=== PATIENT | female | born 1940 | race Caucasian/White ===

== ENCOUNTER 2024-02-15 13:07 | Inpatient (IN) | payer OTHER, MEDICARE ==
[2024-02-15 14:38] LABS: VENOUS BASE EXCESS 4.4 mmol/L (-2-2); VENOUS O2 SATURATION 64.9 % (70-80); VENOUS PCO2 34.7 mmHg (38-52); VENOUS PH 7.512 (7.310-7.410)
[2024-02-15] MEDS ORDERED: morphine SULFATE 4 MG/ML VIAL ONE ×3 (14:42→17:03)
[2024-02-15 14:43] LABS: BASO % 0.5 % (0-2.0); EOS % 0.2 % (0-4.5); HEMATOCRIT 34.1 % (32.4-45.2); HEMOGLOBIN 11.7 GM/dL (10.7-15.3); LYMPH % 16.2 % (8-40); MCH 31.5 pg (25.7-33.7); MCHC 34.2 g/dl (32.0-36.0); MEAN CELL VOLUME 92.1 fl (80-96); MEAN PLT VOLUME 6.5 fl (7.5-11.1); MONO % 9.4 % (3.8-10.2); NEUT % 73.7 % (42.8-82.8); PLATELET COUNT 391 10^3/uL (134-434); RDW 17.3 % (11.6-15.6)
[2024-02-15] MEDS: morphine SULFATE 4 MG/ML VIAL IVPUSH ONE (14:54)
[2024-02-15 14:57] LABS: EPI CELLS 18 /uL (0-25.1); HYALINE CASTS 4 /uL (0-3.1); PH,URINE 5.5 (5.0-8.0); URINE APPEARANCE TURBID; URINE BACTERIA >9,000 /uL (0-1359); URINE BILIRUBIN 1+ (NEGATIVE); URINE COLOR DK YELLOW; URINE GLUCOSE (UA) NEGATIVE (NEGATIVE); URINE KETONE 1+ (NEGATIVE); URINE LEUK ESTERASE 3+ (NEGATIVE); URINE NITRITE NEGATIVE (NEGATIVE); URINE PROTEIN 1+ (NEGATIVE); URINE WBC 1368 /uL (0-25.8)
[2024-02-15 15:22] LABS: YEAST NEGATIVE (NEGATIVE)
[2024-02-15 15:23] LABS: CHLORIDE 89 mmol/L (98-107); POTASSIUM 3.4 mmol/L (3.5-5.1); SODIUM 129 mmol/L (136-145)
[2024-02-15 15:24] LABS: MAGNESIUM 1.4 mg/dL (1.8-2.4)
[2024-02-15 15:25] LABS: ALBUMIN 1.7 g/dl (3.4-5.0); ANION GAP 11 mmol/L (4-13); CALCIUM 8.8 mg/dL (8.5-10.1); CO2 29 mmol/L (21-32); GLUCOSE,RANDOM 73 mg/dL (74-106)
[2024-02-15 15:26] LABS: BLOOD UREA NITROGEN 22.6 mg/dL (7-18)
[2024-02-15 15:28] LABS: CREATININE 1.4 mg/dL (0.55-1.3); SGOT/AST 25 U/L (15-37); SGPT/ALT 18 U/L (13-61)
[2024-02-15 15:29] LABS: ERYTHROCYTE SEDIMENTATION RATE 16 mm/hr (0-30)
[2024-02-15 15:30] LABS: TOT PROT 5.7 g/dl (6.4-8.2)
[2024-02-15 15:31] LABS: BILIRUBIN,TOTAL 1.2 mg/dL (0.2-1)
[2024-02-15 15:32] LABS: ALK PHOS 128 U/L (45-117)
[2024-02-15 15:42] LABS: LACTIC ACID 2.9 mmol/L (0.4-2.0)
[2024-02-15] MEDS ORDERED: POTASSIUM CHLORIDE TABS 20 MEQ TABLET.ER (FP) PO ONE (15:55)
[2024-02-15] MEDS ORDERED: MAGNESIUM SULFATE IN WATER 2 GM/50 ML IVPB IVPB ONE (15:56)
[2024-02-15] MEDS ORDERED: PIPERACILLIN/TAZOB 4.5 GM 4.5 GM/100 ML BAG IVPB ONE (15:56)
[2024-02-15] MEDS ORDERED: VANCOMYCIN 1 GRAM (PRE-DOCKED) 1,000 MG/250 ML BAG IVPB ONE (15:56)
[2024-02-15] MEDS: PIPERACILLIN/TAZOB 4.5 GM 4.5 GM in DEXTROSE 5%-WATER 100 ML IVPB ONE (16:11)
[2024-02-15] MEDS: POTASSIUM CHLORIDE TABS 20 MEQ TABLET.ER (FP) PO ONE (16:11)
[2024-02-15] MEDS: MAGNESIUM SULFATE IN WATER 2 GM/50 ML IVPB IVPB ONE (16:24)
[2024-02-15] MEDS: morphine CARPU-JECT 4 MG/1 ML DISP.SYRIN IVPUSH ONE (16:33)
[2024-02-15] MEDS ORDERED: METOPROLOL TARTRATE 5 MG/5 ML VIAL ONE (17:23)
[2024-02-15] MEDS: VANCOMYCIN 1,000 MG in DEXTROSE 5%-WATER - 250 ML IVPB ONE (17:30)
[2024-02-15] MEDS: SODIUM CHLORIDE 0.9% 500 ML INFUS.BAG IV ONE (17:30)
[2024-02-15] MEDS: METOPROLOL TARTRATE 5 MG/5 ML VIAL IVPUSH ONE (17:50)
[2024-02-15] MEDS ORDERED: PATIENT'S OWN MEDICATION (NON-FORMULARY) (Oxycodone Hcl [Oxycodone Hcl] 5 MG Capsule) PO PRN (18:02)
[2024-02-15] MEDS ORDERED: FUROSEMIDE 40 MG/4 ML INJECTABLE VIAL ONE (18:22)
[2024-02-15] MEDS: FUROSEMIDE 40 MG/4 ML INJECTABLE VIAL IVPUSH ONE (18:35)
[2024-02-15] MEDS: ERTAPENEM SODIUM 1 GM in SODIUM CHLORIDE 50 ML IVPB SCH (20:54)
[2024-02-15] MEDS: oxyCODONE HCL 5 MG TABLET PO PRN (21:55)
[2024-02-15] MEDS: QUEtiapine FUMARATE 25 MG TABLET PO SCH (21:55)
[2024-02-15] MEDS: METOPROLOL TARTRATE 25 MG TABLET (FP) PO SCH (21:55)
[2024-02-16 08:06] LABS: HEMATOCRIT 31.2 % (32.4-45.2); HEMOGLOBIN 10.9 GM/dL (10.7-15.3); MCH 32.4 pg (25.7-33.7); MEAN CELL VOLUME 92.6 fl (80-96); MEAN PLT VOLUME 6.4 fl (7.5-11.1); PLATELET COUNT 312 10^3/uL (134-434); RBC 3.36 M/mm3 (3.60-5.2); RDW 17.5 % (11.6-15.6); WHITE BLOOD COUNT 6.1 K/mm3 (4.0-10.0)
[2024-02-16 08:23] LABS: POTASSIUM 3.8 mmol/L (3.5-5.1)
[2024-02-16 08:28] LABS: ALBUMIN 1.4 g/dl (3.4-5.0); BLOOD UREA NITROGEN 21.4 mg/dL (7-18); CALCIUM 7.9 mg/dL (8.5-10.1)
[2024-02-16 08:33] LABS: BILIRUBIN,TOTAL 1.1 mg/dL (0.2-1); TOT PROT 5.1 g/dl (6.4-8.2)
[2024-02-16] MEDS ORDERED: ERTAPENEM SODIUM 1 GM in SODIUM CHLORIDE 50 ML IVPB SCH (10:00)
[2024-02-16] MEDS: ACETAMINOPHEN 500 MG TABLET (FP) PO PRN (10:38)
[2024-02-16] MEDS: ENOXAPARIN NA (PORCINE) 40 MG/0.4 ML DISP.SYRIN SQ SCH (10:38)
[2024-02-16 11:01] LABS: MAGNESIUM 1.9 mg/dL (1.8-2.4)
[2024-02-16] MEDS: SODIUM CHLORIDE 1,000 ML IV SCH (12:03)
[2024-02-16] MEDS: CEFTRIAXONE 2 GM in DEXTROSE 5%-WATER 100 ML IVPB SCH (14:32)
[2024-02-16] MEDS: VANCOMYCIN/WATER FOR INJ (PEG) 1,000 MG/200 ML BAG IVPB ONE (14:38)
[2024-02-16] MEDS: SODIUM HYPOCHLORITE 0.25%- 473 ML BULK BOTTLE TP SCH (16:46)
[2024-02-16] MEDS: busPIRone HCL 5 MG TABLET PO SCH (16:51)
[2024-02-16] MEDS: CITALOPRAM HYDROBROMIDE 20 MG TABLET PO SCH (16:51)
[2024-02-16] MEDS ORDERED: ACETAMINOPHEN 1000 MG/100 ML BAG IVPB ONE (17:25)
[2024-02-16] MEDS: GABAPENTIN 300 MG CAPSULE PO SCH (17:35)
[2024-02-16] MEDS: ACETAMINOPHEN 1000 MG/100 ML BAG IVPB ONE (20:25)
[2024-02-16] MEDS: ATORVASTATIN CA 10 MG TABLET (FP) PO SCH (21:25)
[2024-02-17 07:07] LABS: BASO % 0.2 % (0-2.0); EOS % 1.2 % (0-4.5); HEMATOCRIT 28.9 % (32.4-45.2); MCH 32.6 pg (25.7-33.7); MCHC 34.5 g/dl (32.0-36.0); MEAN CELL VOLUME 94.5 fl (80-96); MEAN PLT VOLUME 6.3 fl (7.5-11.1); MONO % 8.3 % (3.8-10.2); NEUT % 73.3 % (42.8-82.8); PLATELET COUNT 256 10^3/uL (134-434); RBC 3.06 M/mm3 (3.60-5.2); RDW 17.6 % (11.6-15.6); WHITE BLOOD COUNT 4.9 K/mm3 (4.0-10.0)
[2024-02-17 07:26] LABS: POTASSIUM 3.2 mmol/L (3.5-5.1)
[2024-02-17 07:30] LABS: CALCIUM 7.8 mg/dL (8.5-10.1)
[2024-02-17 07:31] LABS: ALBUMIN 1.2 g/dl (3.4-5.0)
[2024-02-17 07:33] LABS: BLOOD UREA NITROGEN 22.5 mg/dL (7-18)
[2024-02-17 07:35] LABS: BILIRUBIN,TOTAL 0.7 mg/dL (0.2-1)
[2024-02-17 07:36] LABS: TOT PROT 4.4 g/dl (6.4-8.2)
[2024-02-17] MEDS: MULTIVITAMINS (DAILY MVI) TABLET (FP) PO SCH (10:21)
[2024-02-17] MEDS: ZINC SULFATE 220 MG CAPSULE (FP) PO SCH (10:21)
[2024-02-17] MEDS: ASCORBIC ACID 500 MG TABLET (FP) PO SCH (10:23)
[2024-02-17] MEDS: AMINO ACIDS/PROTEIN HYDROLYS 30 ML LIQUID.PKT PO SCH (10:27)
[2024-02-17] MEDS: POTASSIUM CHLORIDE ORAL LIQUID 20 MEQ/15 ML PO SCH (15:31)
[2024-02-17] MEDS: metroNIDAZOLE 250 MG TABLET PO SCH (21:18)
[2024-02-17] MEDS: CEFUROXIME AXETIL 500 MG TABLET PO SCH (21:18)
[2024-02-18 07:38] LABS: POTASSIUM 3.8 mmol/L (3.5-5.1)
[2024-02-18 07:41] LABS: ALBUMIN 1.3 g/dl (3.4-5.0); CALCIUM 7.8 mg/dL (8.5-10.1); MAGNESIUM 1.6 mg/dL (1.8-2.4)
[2024-02-18 07:42] LABS: BLOOD UREA NITROGEN 21.6 mg/dL (7-18)
[2024-02-18 07:44] LABS: CREATININE 0.8 mg/dL (0.55-1.3)
[2024-02-18 07:45] LABS: BILIRUBIN,TOTAL 0.7 mg/dL (0.2-1)
[2024-02-18 07:46] LABS: TOT PROT 4.6 g/dl (6.4-8.2)
[2024-02-18 07:50] LABS: CHOLESTEROL 161 mg/dL (50-200)
[2024-02-18 07:51] LABS: LDL CHOLESTEROL (ONLY SJRH) 89 mg/dL (5-100)
[2024-02-18 07:54] LABS: HDL CHOLESTEROL 18 mg/dL (40-60)
[2024-02-18 08:35] LABS: HEMATOCRIT 29.6 % (32.4-45.2); HEMOGLOBIN 10.2 GM/dL (10.7-15.3); MCH 32.4 pg (25.7-33.7); MCHC 34.5 g/dl (32.0-36.0); MEAN CELL VOLUME 93.8 fl (80-96); MEAN PLT VOLUME 6.7 fl (7.5-11.1); PLATELET COUNT 306 10^3/uL (134-434); RBC 3.16 M/mm3 (3.60-5.2); RDW 17.7 % (11.6-15.6); WHITE BLOOD COUNT 4.7 K/mm3 (4.0-10.0)
[2024-02-18 09:38] LABS: ANISOCYTOSIS 0; MACROCYTOSIS 0; TARGET CELLS 1+
[2024-02-19] MEDS: SODIUM CHLORIDE 250 ML IV STA (03:08)
[2024-02-19] MEDS: MAGNESIUM 1GM/D5W 100ML - 100 ML IVPB IVPB ONE (03:17)
[2024-02-20] MEDS: BENZOCAINE/MENTH/CETYLPYRD CL 1 EACH LOZENGE MM PRN (00:15)
[2024-02-20 07:16] LABS: HEMATOCRIT 27.2 % (32.4-45.2); HEMOGLOBIN 9.6 GM/dL (10.7-15.3); MCH 33.2 pg (25.7-33.7); MCHC 35.2 g/dl (32.0-36.0); MEAN CELL VOLUME 94.3 fl (80-96); MEAN PLT VOLUME 6.6 fl (7.5-11.1); PLATELET COUNT 291 10^3/uL (134-434); RBC 2.89 M/mm3 (3.60-5.2); WHITE BLOOD COUNT 4.9 K/mm3 (4.0-10.0)
[2024-02-20 09:29] LABS: ANISOCYTOSIS 0; HELMET CELLS 0; HOWELL-JOLLY BODIES 0; MACROCYTOSIS 0; OVALOCYTE 0; ROULEAU 0; SICKELED CELLS 0; TARGET CELLS 0; TEAR DROP CELLS 0; TOXIC GRANULATION 0
[2024-02-20 09:59] LABS: ALBUMIN 1.2 g/dl (3.4-5.0); BILIRUBIN,TOTAL 0.6 mg/dL (0.2-1); BLOOD UREA NITROGEN 21.2 mg/dL (7-18); CALCIUM 7.8 mg/dL (8.5-10.1); CREATININE 0.6 mg/dL (0.55-1.3); POTASSIUM 3.5 mmol/L (3.5-5.1); TOT PROT 4.4 g/dl (6.4-8.2)
[2024-02-20] MEDS: BACITRACIN/POLYMYXIN B SULFATE 15 GM TUBE TP SCH (13:12)
[2024-02-21] MEDS: FUROSEMIDE 40 MG/4 ML INJECTABLE VIAL IVPUSH ONE (11:09)
[2024-02-21 22:46] VITALS: RESP 17
[2024-02-21 22:47] VITALS: BMI 32.3
[2024-02-22 05:44] VITALS: BP 92/45; PULSE 85; TEMP 97.7
[2024-02-22] MEDS: CEFUROXIME AXETIL 250 MG TABLET PO SCH (10:05)
[2024-02-22] MEDS: FUROSEMIDE 20 MG TABLET (FP) PO SCH (10:06)
== END 2024-02-22 13:09 | disposition home or self-care (01) | DRG 592 ==
LOC: JER 13:07 → JERBED 16:34 → J4S 18:44
PROVIDERS: ADMIT Internal Medicine; ATTEND Internal Medicine
DX: L89.154 Pressure ulcer of sacral region, stage 4 (principal); G93.41 Metabolic encephalopathy; R53.2 Functional quadriplegia; N39.0 Urinary tract infection, site not specified; N17.9 Acute kidney failure, unspecified; E87.20 Acidosis, unspecified; E87.1 Hypo-osmolality and hyponatremia; M86.9 Osteomyelitis, unspecified; I50.20 Unspecified systolic (congestive) heart failure; I48.91 Unspecified atrial fibrillation; I11.0 Hypertensive heart disease with heart failure; E83.42 Hypomagnesemia; E87.6 Hypokalemia; B96.1 Klebsiella pneumoniae [K. pneumoniae] as the cause of diseases classified elsewhere; B96.4 Proteus (mirabilis) (morganii) as the cause of diseases classified elsewhere; B95.2 Enterococcus as the cause of diseases classified elsewhere; B96.20 Unspecified Escherichia coli [E. coli] as the cause of diseases classified elsewhere; B95.1 Streptococcus, group B, as the cause of diseases classified elsewhere; E78.5 Hyperlipidemia, unspecified; F41.8 Other specified anxiety disorders; Z74.01 Bed confinement status; Z88.1 Allergy status to other antibiotic agents
CPT/HCPCS: 36415; 80053; 80061; 81003; 82533; 82550; 82803; 83605; 83735; 83930; 84100; 84439; 84443; 84484; 85025; 85027; 85651; 86140; 86850; 86900; 86901; 87040; 87070; 87077; 87086; 87186; 87205; 93005; 93010; 93306-TC; 99285-25; J0131

== ENCOUNTER 2024-02-25 16:33 | Inpatient (IN) | payer OTHER, MEDICARE ==
[2024-02-25 18:26] LABS: BASO % 0.2 % (0-2.0); EOS % 0.9 % (0-4.5); HEMATOCRIT 31.1 % (32.4-45.2); HEMOGLOBIN 10.7 GM/dL (10.7-15.3); LYMPH % 6.3 % (8-40); MCH 32.9 pg (25.7-33.7); MCHC 34.5 g/dl (32.0-36.0); MEAN CELL VOLUME 95.3 fl (80-96); MEAN PLT VOLUME 6.6 fl (7.5-11.1); MONO % 8.3 % (3.8-10.2); NEUT % 84.3 % (42.8-82.8); PLATELET COUNT 305 10^3/uL (134-434); RBC 3.27 M/mm3 (3.60-5.2); RDW 20.2 % (11.6-15.6); WHITE BLOOD COUNT 10.1 K/mm3 (4.0-10.0)
[2024-02-25 18:31] LABS: VENOUS BASE EXCESS 7.3 mmol/L (-2-2); VENOUS O2 SATURATION 30.7 % (70-80); VENOUS PCO2 65.7 mmHg (38-52); VENOUS PH 7.343 (7.310-7.410)
[2024-02-25 19:00] LABS: INR 1.1 (0.83-1.09); PROTHROMBIN TIME (PATIENT) 12.4 SEC (9.7-13.0)
[2024-02-25 19:02] LABS: ACTIVATED PTT 34.2 SECONDS (25.2-36.5); POTASSIUM 3.5 mmol/L (3.5-5.1)
[2024-02-25 19:05] LABS: BLOOD UREA NITROGEN 32.3 mg/dL (7-18); CALCIUM 8.1 mg/dL (8.5-10.1)
[2024-02-25 19:06] LABS: EPI CELLS 18 /uL (0-25.1); HYALINE CASTS 2 /uL (0-3.1); PH,URINE 5.5 (5.0-8.0); URINE APPEARANCE CLEAR; URINE BACTERIA 42 /uL (0-1359); URINE BILIRUBIN NEGATIVE (NEGATIVE); URINE COLOR DK YELLOW; URINE GLUCOSE (UA) NEGATIVE (NEGATIVE); URINE KETONE NEGATIVE (NEGATIVE); URINE LEUK ESTERASE 3+ (NEGATIVE); URINE NITRITE NEGATIVE (NEGATIVE); URINE PROTEIN NEGATIVE (NEGATIVE); URINE RBC 36 /uL (0-23.9); URINE UROBILINOGEN 0.2 mg/dL (0.2-1.0); URINE WBC 230 /uL (0-25.8)
[2024-02-25 19:10] LABS: BILIRUBIN,TOTAL 0.9 mg/dL (0.2-1); TOT PROT 5.3 g/dl (6.4-8.2)
[2024-02-25 19:18] LABS: ALBUMIN 1.5 g/dl (3.4-5.0)
[2024-02-25 19:51] LABS: YEAST PRESENT (NEGATIVE)
[2024-02-25] MEDS: FUROSEMIDE 40 MG/4 ML INJECTABLE VIAL IVPUSH ONE (20:12)
[2024-02-25] MEDS ORDERED: FUROSEMIDE 40 MG/4 ML INJECTABLE VIAL ONE (20:14)
[2024-02-25] MEDS: ACETAMINOPHEN 1000 MG/100 ML BAG IVPB ONE (21:33)
[2024-02-25] MEDS ORDERED: ACETAMINOPHEN INJECTION 100 ML IVPB ONE (21:47)
[2024-02-26] MEDS: FUROSEMIDE 40 MG/4 ML INJECTABLE VIAL IVPUSH SCH (06:01)
[2024-02-26 06:21] LABS: BASO % 1.2 % (0-2.0); EOS % 1.9 % (0-4.5); HEMATOCRIT 28.1 % (32.4-45.2); HEMOGLOBIN 9.6 GM/dL (10.7-15.3); LYMPH % 12.2 % (8-40); MCH 33.2 pg (25.7-33.7); MCHC 34.3 g/dl (32.0-36.0); MEAN CELL VOLUME 96.9 fl (80-96); MEAN PLT VOLUME 7.2 fl (7.5-11.1); MONO % 10.3 % (3.8-10.2); NEUT % 74.4 % (42.8-82.8); PLATELET COUNT 221 10^3/uL (134-434); RBC 2.89 M/mm3 (3.60-5.2); RDW 19.7 % (11.6-15.6); WHITE BLOOD COUNT 7.6 K/mm3 (4.0-10.0)
[2024-02-26 06:37] LABS: POTASSIUM 3.7 mmol/L (3.5-5.1)
[2024-02-26 06:40] LABS: MAGNESIUM 1.4 mg/dL (1.8-2.4)
[2024-02-26 06:41] LABS: ALBUMIN 1.3 g/dl (3.4-5.0); CALCIUM 7.8 mg/dL (8.5-10.1)
[2024-02-26 06:42] LABS: BLOOD UREA NITROGEN 31.7 mg/dL (7-18)
[2024-02-26 06:45] LABS: PHOSPHOROUS 1.8 mg/dL (2.5-4.9)
[2024-02-26 06:46] LABS: TOT PROT 4.6 g/dl (6.4-8.2)
[2024-02-26 06:47] LABS: BILIRUBIN,TOTAL 0.8 mg/dL (0.2-1)
[2024-02-26] MEDS ORDERED: ACETAMINOPHEN 325 MG TABLET (FP) ONE (06:54)
[2024-02-26] MEDS: ACETAMINOPHEN 500 MG TABLET (FP) PO ONE (06:57)
[2024-02-26] MEDS ORDERED: NAPH,MB-DB/K PH,MBDB POWDER PACKET ONE (09:05)
[2024-02-26] MEDS ORDERED: MAGNESIUM SULFATE IN WATER 2 GM/50 ML IVPB IVPB ONE ×2 (09:06→12:11)
[2024-02-26] MEDS: MAGNESIUM 2GM/50ML STERILE WATER IVPB IVPB SCH (09:38)
[2024-02-26] MEDS: NAPH,MB-DB/K PH,MBDB POWDER PACKET PO ONE (09:38)
[2024-02-26] MEDS ORDERED: ENOXAPARIN NA (PORCINE) 40 MG/0.4 ML DISP.SYRIN SQ ONE (09:39)
[2024-02-26] MEDS: ENOXAPARIN NA (PORCINE) 40 MG/0.4 ML DISP.SYRIN SQ SCH (09:42)
[2024-02-26] MEDS ORDERED: GABAPENTIN 300 MG CAPSULE ONE (10:23)
[2024-02-26] MEDS: GABAPENTIN 300 MG CAPSULE PO SCH ×2 (10:30→22:49)
[2024-02-26] MEDS: NAPH,MB-DB/K PH,MBDB POWDER PACKET PO SCH (12:01)
[2024-02-26] MEDS ORDERED: ASPIRIN COATED 81 MG TABLET.EC ONE (12:10)
[2024-02-26] MEDS ORDERED: busPIRone HCL 5 MG TABLET ONE (12:10)
[2024-02-26] MEDS ORDERED: ZINC SULFATE 220 MG CAPSULE (FP) ONE (12:10)
[2024-02-26] MEDS ORDERED: POTASSIUM CHLORIDE ORAL LIQUID 20 MEQ/15 ML ONE (12:11)
[2024-02-26] MEDS ORDERED: ASCORBIC ACID 500 MG TABLET (FP) ONE (12:11)
[2024-02-26] MEDS ORDERED: ALPRAZolam 0.25 MG TABLET ONE (12:11)
[2024-02-26] MEDS: ASPIRIN COATED 81 MG TABLET.EC PO SCH (12:33)
[2024-02-26] MEDS: ASCORBIC ACID 500 MG TABLET (FP) PO SCH ×2 (12:33→22:50)
[2024-02-26] MEDS: ZINC SULFATE 220 MG CAPSULE (FP) PO SCH (12:33)
[2024-02-26] MEDS: POTASSIUM CHLORIDE ORAL LIQUID 20 MEQ/15 ML PO SCH (12:33)
[2024-02-26] MEDS: busPIRone HCL 5 MG TABLET PO SCH ×2 (12:33→23:18)
[2024-02-26] MEDS: ALPRAZolam 0.25 MG TABLET PO SCH ×2 (12:34→22:55)
[2024-02-26] MEDS: CITALOPRAM HYDROBROMIDE 20 MG TABLET PO SCH (12:34)
[2024-02-26] MEDS: SODIUM HYPOCHLORITE 0.25%- 473 ML BULK BOTTLE TP SCH (14:20)
[2024-02-26] MEDS ORDERED: oxyCODONE HCL 5 MG TABLET ONE (14:50)
[2024-02-26] MEDS: oxyCODONE HCL 5 MG TABLET PO PRN (14:55)
[2024-02-26] MEDS ORDERED: ATORVASTATIN CA 20 MG TABLET (FP) PO SCH (22:00)
[2024-02-26] MEDS ORDERED: QUEtiapine FUMARATE 25 MG TABLET PO SCH (22:00)
[2024-02-26] MEDS: ATORVASTATIN CA 20 MG TABLET (FP) PO SCH (22:49)
[2024-02-26] MEDS: QUEtiapine FUMARATE 25 MG TABLET PO SCH (22:55)
[2024-02-26] MEDS ORDERED: busPIRone HCL 5 MG TABLET PO SCH (22:58)
[2024-02-27] MEDS: oxyCODONE HCL 5 MG TABLET PO PRN (00:03)
[2024-02-27] MEDS: FUROSEMIDE 40 MG/4 ML INJECTABLE VIAL IVPUSH SCH (06:57)
[2024-02-27 10:58] LABS: BASO % 0.3 % (0-2.0); EOS % 2.7 % (0-4.5); HEMATOCRIT 26.8 % (32.4-45.2); HEMOGLOBIN 9.3 GM/dL (10.7-15.3); MCH 33.5 pg (25.7-33.7); MCHC 34.7 g/dl (32.0-36.0); MEAN CELL VOLUME 96.4 fl (80-96); MEAN PLT VOLUME 7.4 fl (7.5-11.1); MONO % 8.2 % (3.8-10.2); NEUT % 80.8 % (42.8-82.8); PLATELET COUNT 220 10^3/uL (134-434); RBC 2.78 M/mm3 (3.60-5.2); RDW 20.4 % (11.6-15.6); WHITE BLOOD COUNT 6.5 K/mm3 (4.0-10.0)
[2024-02-27 11:22] LABS: POTASSIUM 3.3 mmol/L (3.5-5.1)
[2024-02-27 11:23] LABS: CALCIUM 7.9 mg/dL (8.5-10.1)
[2024-02-27 11:24] LABS: BLOOD UREA NITROGEN 29.6 mg/dL (7-18); MAGNESIUM 2.1 mg/dL (1.8-2.4)
[2024-02-27 11:27] LABS: PHOSPHOROUS 2.6 mg/dL (2.5-4.9)
[2024-02-27] MEDS: POTASSIUM CHLORIDE ORAL LIQUID 20 MEQ/15 ML PO SCH (11:36)
[2024-02-27] MEDS: ENOXAPARIN NA (PORCINE) 40 MG/0.4 ML DISP.SYRIN SQ SCH (11:38)
[2024-02-27] MEDS: CITALOPRAM HYDROBROMIDE 20 MG TABLET PO SCH (11:39)
[2024-02-27] MEDS: ZINC SULFATE 220 MG CAPSULE (FP) PO SCH (11:40)
[2024-02-27] MEDS: ASPIRIN COATED 81 MG TABLET.EC PO SCH (11:41)
[2024-02-27] MEDS: SODIUM HYPOCHLORITE 0.25%- 473 ML BULK BOTTLE TP SCH (11:43)
[2024-02-27] MEDS: KCL 10 MEQ IVPB 10 MEQ/100 ML INFUS.BAG IVPB SCH (20:53)
[2024-02-28] MEDS: AMINO ACIDS/PROTEIN HYDROLYS 30 ML LIQUID.PKT PO SCH (08:58)
[2024-02-28] MEDS: MULTIVITAMINS (DAILY MVI) TABLET (FP) PO SCH (09:16)
[2024-02-28 09:31] LABS: BASO % 0.1 % (0-2.0); EOS % 1.4 % (0-4.5); HEMOGLOBIN 10.1 GM/dL (10.7-15.3); LYMPH % 8.7 % (8-40); MCH 33.6 pg (25.7-33.7); MCHC 32.6 g/dl (32.0-36.0); MEAN CELL VOLUME 103.2 fl (80-96); MEAN PLT VOLUME 7.3 fl (7.5-11.1); MONO % 7.3 % (3.8-10.2); NEUT % 82.5 % (42.8-82.8); PLATELET COUNT 237 10^3/uL (134-434); RBC 3.01 M/mm3 (3.60-5.2); RDW 22.5 % (11.6-15.6); WHITE BLOOD COUNT 6.3 K/mm3 (4.0-10.0)
[2024-02-28 09:51] LABS: POTASSIUM 3.7 mmol/L (3.5-5.1)
[2024-02-28 09:54] LABS: CALCIUM 8.1 mg/dL (8.5-10.1)
[2024-02-28 09:55] LABS: ALBUMIN 1.4 g/dl (3.4-5.0); BLOOD UREA NITROGEN 28.8 mg/dL (7-18)
[2024-02-28 09:58] LABS: CREATININE 1.1 mg/dL (0.55-1.3)
[2024-02-28 09:59] LABS: BILIRUBIN,TOTAL 1.2 mg/dL (0.2-1); TOT PROT 4.9 g/dl (6.4-8.2)
[2024-02-28 10:16] LABS: ANISOCYTOSIS 3+; MACROCYTOSIS 1+; TARGET CELLS 2+
[2024-02-28] MEDS: BENZOCAINE/MENTHOL 1 EACH LOZENGE MM PRN (12:53)
[2024-02-29 08:53] LABS: BASO % 0.3 % (0-2.0); EOS % 2.1 % (0-4.5); HEMATOCRIT 26.5 % (32.4-45.2); HEMOGLOBIN 9.1 GM/dL (10.7-15.3); LYMPH % 11.9 % (8-40); MCH 33.3 pg (25.7-33.7); MCHC 34.2 g/dl (32.0-36.0); MEAN CELL VOLUME 97.5 fl (80-96); MEAN PLT VOLUME 7.4 fl (7.5-11.1); MONO % 7.6 % (3.8-10.2); NEUT % 78.1 % (42.8-82.8); PLATELET COUNT 240 10^3/uL (134-434); RBC 2.72 M/mm3 (3.60-5.2); RDW 22.3 % (11.6-15.6); WHITE BLOOD COUNT 5.5 K/mm3 (4.0-10.0)
[2024-02-29 09:10] LABS: POTASSIUM 3.3 mmol/L (3.5-5.1)
[2024-02-29 09:15] LABS: CALCIUM 7.7 mg/dL (8.5-10.1)
[2024-02-29 09:16] LABS: ALBUMIN 1.4 g/dl (3.4-5.0); BLOOD UREA NITROGEN 32.5 mg/dL (7-18)
[2024-02-29 09:20] LABS: BILIRUBIN,TOTAL 1.2 mg/dL (0.2-1); TOT PROT 4.8 g/dl (6.4-8.2)
[2024-02-29] MEDS: POTASSIUM CHLORIDE ORAL LIQUID 20 MEQ/15 ML PO ONE (10:51)
[2024-03-01] MEDS: ACETAMINOPHEN 325 MG TABLET (FP) PO ONE (09:10)
[2024-03-01 10:54] LABS: BASO % 0.2 % (0-2.0); EOS % 1.6 % (0-4.5); HEMATOCRIT 27.6 % (32.4-45.2); HEMOGLOBIN 9.4 GM/dL (10.7-15.3); LYMPH % 10.4 % (8-40); MCH 33.4 pg (25.7-33.7); MCHC 34.1 g/dl (32.0-36.0); MEAN PLT VOLUME 7.5 fl (7.5-11.1); MONO % 9.3 % (3.8-10.2); NEUT % 78.5 % (42.8-82.8); PLATELET COUNT 218 10^3/uL (134-434); RBC 2.82 M/mm3 (3.60-5.2); RDW 22.5 % (11.6-15.6); WHITE BLOOD COUNT 5.7 K/mm3 (4.0-10.0)
[2024-03-01 11:22] LABS: POTASSIUM 3.2 mmol/L (3.5-5.1)
[2024-03-01 11:24] LABS: BLOOD UREA NITROGEN 37.9 mg/dL (7-18); CALCIUM 8.1 mg/dL (8.5-10.1)
[2024-03-01 11:25] LABS: ALBUMIN 1.5 g/dl (3.4-5.0)
[2024-03-01 11:28] LABS: CREATININE 1.2 mg/dL (0.55-1.3)
[2024-03-01 11:29] LABS: BILIRUBIN,TOTAL 0.8 mg/dL (0.2-1); TOT PROT 4.8 g/dl (6.4-8.2)
[2024-03-02 09:03] LABS: HEMATOCRIT 26.3 % (32.4-45.2); MCH 33.9 pg (25.7-33.7); MEAN CELL VOLUME 99.7 fl (80-96); MEAN PLT VOLUME 7.5 fl (7.5-11.1); PLATELET COUNT 204 10^3/uL (134-434); RBC 2.64 M/mm3 (3.60-5.2); RDW 22.3 % (11.6-15.6); WHITE BLOOD COUNT 4.3 K/mm3 (4.0-10.0)
[2024-03-02 09:16] LABS: POTASSIUM 3.2 mmol/L (3.5-5.1)
[2024-03-02 09:23] LABS: BLOOD UREA NITROGEN 41.8 mg/dL (7-18); CALCIUM 7.7 mg/dL (8.5-10.1)
[2024-03-02 09:24] LABS: ALBUMIN 1.3 g/dl (3.4-5.0)
[2024-03-02 09:27] LABS: CREATININE 1.2 mg/dL (0.55-1.3)
[2024-03-02 09:28] LABS: BILIRUBIN,TOTAL 0.7 mg/dL (0.2-1); TOT PROT 4.5 g/dl (6.4-8.2)
[2024-03-02] MEDS: BENZOCAINE/MENTH/CETYLPYRD CL 1 EACH LOZENGE MM PRN (10:54)
[2024-03-02 11:40] LABS: MAGNESIUM 1.7 mg/dL (1.8-2.4)
[2024-03-02] MEDS: POTASSIUM CHLORIDE ORAL LIQUID 20 MEQ/15 ML PO ONE (11:46)
[2024-03-02] MEDS: MAGNESIUM 2GM/50ML STERILE WATER IVPB IVPB ONE (14:05)
[2024-03-02 15:00] VITALS: BMI 42.9
[2024-03-03 02:43] VITALS: RESP 18
[2024-03-03] MEDS: SODIUM CHLORIDE 500 ML IV STA ×2 (05:00→15:13)
[2024-03-03 08:52] LABS: HEMATOCRIT 26.1 % (32.4-45.2); HEMOGLOBIN 9.1 GM/dL (10.7-15.3); MCH 34.5 pg (25.7-33.7); MCHC 34.9 g/dl (32.0-36.0); MEAN CELL VOLUME 98.9 fl (80-96); MEAN PLT VOLUME 7.7 fl (7.5-11.1); PLATELET COUNT 203 10^3/uL (134-434); RBC 2.64 M/mm3 (3.60-5.2); RDW 22.6 % (11.6-15.6); WHITE BLOOD COUNT 4.1 K/mm3 (4.0-10.0)
[2024-03-03 09:10] LABS: POTASSIUM 3.8 mmol/L (3.5-5.1)
[2024-03-03 09:14] LABS: BLOOD UREA NITROGEN 49.2 mg/dL (7-18); MAGNESIUM 2.1 mg/dL (1.8-2.4)
[2024-03-03 09:18] LABS: CALCIUM 7.7 mg/dL (8.5-10.1); CREATININE 1.2 mg/dL (0.55-1.3)
[2024-03-03] MEDS ORDERED: FUROSEMIDE 40 MG TABLET (FP) PO SCH (10:00)
[2024-03-04 03:25] VITALS: BP 113/49; PULSE 94; TEMP 97.1
== END 2024-03-04 14:00 | DRG 291 ==
LOC: JER 16:33 → JERBED 21:58 → OBSVTOIN 02-26 11:59 → J6S 02-26 15:02 → UNDODISIN 03-02 18:42
PROVIDERS: ADMIT Internal Medicine; ATTEND Internal Medicine
DX: I11.0 Hypertensive heart disease with heart failure (principal); I50.23 Acute on chronic systolic (congestive) heart failure; L89.154 Pressure ulcer of sacral region, stage 4; R53.2 Functional quadriplegia; N30.01 Acute cystitis with hematuria; Z68.41 Body mass index [BMI] 40.0-44.9, adult; N17.9 Acute kidney failure, unspecified; I48.91 Unspecified atrial fibrillation; E78.5 Hyperlipidemia, unspecified; F41.8 Other specified anxiety disorders; Z96.651 Presence of right artificial knee joint; M21.372 Foot drop, left foot; M21.371 Foot drop, right foot; Z74.01 Bed confinement status; E66.01 Morbid (severe) obesity due to excess calories; E87.6 Hypokalemia; Z93.3 Colostomy status
CPT/HCPCS: 0241U-QW; 36415; 71045-TC-FY; 80048; 80053; 81003; 82272; 82728; 82803; 83540; 83550; 83735; 83880; 84100; 84466; 84484; 85025; 85027; 85610; 85730; 87040; 87077; 87081; 87086; 93005; 93010; 97162-GP; 99285-25; E0186; G0378; J0131